=== PATIENT | male | born 1995 | race Caucasian/White ===

== ENCOUNTER 2020-06-25 20:58 | Emergency (ER) | payer BC ==
[2020-06-25] MEDS ORDERED: Diphtheria,Pertussis(Acell),Tetanus Vaccine 0.5 ML Syringe IM ONE (21:14)
[2020-06-25] MEDS ORDERED: Bacitracin/Neomycin/Polymyxin B Oint 0.9 GM U/D Packet TOP ONE (21:25)
--- NOTE | 2020-06-25 21:25 | EDM.PDOC ---
ED HPI GENERAL MEDICAL PROBLEM - General Chief Complaint: Bite:Animal, Insect Stated Complaint: dog bite Time Seen by Provider: 06/25/20 21:09 Source of Information: Reports: Patient History Limitations: Reports: No Limitations - History of Present Illness INITIAL COMMENTS - FREE TEXT/NARRATIVE: Patient comes to ER with history of dog bite that happened around 1pm today. Pit Bull. Initially did not have significant issues per self report. Became alarmed as he noticed it starting to swell over the last 4 hours. Initially had good ROM/able to move fingers and make a fist. Now due to swelling it is not as easy to do that. No numbness. - Related Data Allergies Allergy/AdvReac Type Severity Reaction Status Date / Time No Known Allergies Allergy Verified 06/25/20 21:13 Home Meds: Home Meds cephALEXin [Keflex] 500 mg PO Q8H #12 cap 06/25/20 [Rx] Past Medical History - Past Health History Medical/Surgical History: Denies Medical/Surgical History ED ROS GENERAL - Review of Systems Review Of Systems: See Below Musculoskeletal: Reports: Hand Pain Skin: Reports: Wound Neurological: Denies: Numbness, Tingling, Weakness ED EXAM, ANIMAL BITE - Physical Exam Exam: See Below Exam Limited By: No Limitations General Appearance: Alert, WD/WN, No Apparent Distress Eye Exam: Bilateral Eye: EOMI, PERRL Ears: Hearing Grossly Normal Throat/Mouth: Normal Voice, No Airway Compromise Head: Atraumatic, Normocephalic Neck: Supple Respiratory/Chest: No Respiratory Distress Extremities: Normal Capillary Refill, Other (Exam of left hand shows 3 puncture wounds palm and superfial murphy on back of hand from dog's teeth. No drainage. Fingers atraumatic. Normal skin coloration. Able to move fingers but is complaining of stiffness with movements/discomfort. ) Neurological: Alert, Oriented, Normal Cognition Course - Orders/Labs/Meds Orders: Active Orders 24 hr Category Date Time Status Vaccines to be Administered [RC] PER UNIT ROUTINE Care 06/25/20 21:14 Ordered Meds: Medications Discontinued Medications Generic Name Dose Route Start Last Admin Trade Name Freq PRN Reason Stop Dose Admin Diphtheria/Tetanus/Acell Pertussis 0.5 ml 06/25/20 21:14 Boostrix IM 06/25/20 21:15 .ONCE ONE - Re-Assessments/Exams Free Text/Narrative Re-Assessment/Exam: 06/25/20 21:39 Initially per patient's self report he had no problems moving his fingers/hand after initial trauma. It was only after swelling started to set in hours later that he started to develop some stiffness with movement. No deformity noted of fingers. Do not suspect at this time that there appears to be any trauma to tendons/ligaments and instead most of complaint is related to soft tissue swelling that developed later. Hand soaked in Betadine and cleansed. Antibiotic ointment and bandaging applied. Wound care reviewed. To start Keflex and slate picker rest of course of antibiotic at pharmacy. Tylenol/Ibuprofen for pain and swelling. Tetanus shot updated. Dog is reportedly up to date on vaccines including Rabies. Work slip for [employer] given to patient. To follow up with clinic on Tuesday, two days from now, for wound check. Departure - Departure Time of Disposition: 21:30 Disposition: Home, Self-Care 01 Condition: Good Clinical Impression: Dog bite of left hand Qualifiers: Encounter type: initial encounter Qualified Code(s): S61.452A - Open bite of left hand, initial encounter; W54.0XXA - Bitten by dog, initial encounter - Discharge Information *PRESCRIPTION DRUG MONITORING PROGRAM REVIEWED*: Not Applicable *COPY OF PRESCRIPTION DRUG MONITORING REPORT IN PATIENT MIKAEL: Not Applicable Prescriptions: cephALEXin [Keflex] 500 mg PO Q8H #12 cap Instructions: Animal Bite, Adult, [id number] Referrals: Aura Sams NP [Primary Care Provider] - Additional Instructions: Keep hand elevated to help with swelling. Cool packs may help. Take 2 pills of the antibiotic you were given every 12 hours for 3 days. Then go to one pill every 8 hours for days 4-7. Watch for any signs of infection/thickening chris fonseca. If you see worsening redness/warmth/swelling or start to have fevers get rechecked. Recommend recheck at clinic in two days to make certain things are improving. If complications develop you may need to be referred to a hand specialist in [place]. Further work restrictions as needed can be determined at that time. OK to take Tylenol and/or Ibuprofen for pain. - My Orders Last 24 Hours: My Active Orders 06/25/20 21:14 Vaccines to be Administered [RC] PER UNIT ROUTINE - Assessment/Plan Last 24 Hours: My Active Orders 06/25/20 21:14 Vaccines to be Administered [RC] PER UNIT ROUTINE
== END 2020-06-25 21:55 | disposition home or self-care (01) ==
LOC: LL.ED 20:58
DX: S61.452A Open bite of left hand, initial encounter (principal); Z23 Encounter for immunization; W54.0XXA Bitten by dog, initial encounter
CPT/HCPCS: 90471; 90715; 99283